=== PATIENT | female | born 1950 | race Caucasian/White ===

== ENCOUNTER 2016-10-31 17:16 | Emergency (ER) | payer OTHER ==
[~2016-10-31] VITALS: Ht 154.9 cm; Wt 65.7 kg
[~2016-10-31 17:16] MED LIST: AUGMENTIN875 MG PO; CIPRO500 MG PO; ENULOSE10 GM/15 M PO; FLAGYL500 MG PO; HYDROCODON-ACE1 EAC7 PO; MIRALAX17 GM PO; PERCOCET 5/31 TABLET PO; PRILOSEC20 MG PO; SIMVASTATIN20 MG PO; ZOFRAN4 MG PO
[2016-10-31 17:21] VITALS: BP 131/81
== END 2016-10-31 18:57 | disposition home or self-care (01) ==
LOC: EME 17:16
DX: S80.02XA Contusion of left knee, initial encounter (principal); W01.0XXA Fall on same level from slipping, tripping and stumbling without subsequent striking against object, initial encounter; Z88.6 Allergy status to analgesic agent
CPT/HCPCS: 73564; 99281; 99284

== ENCOUNTER 2017-02-11 09:31 | Day surgery (SDC) | payer OTHER ==
[~2017-02-11] VITALS: Ht 154.9 cm; Wt 68.8 kg
[2017-02-11] VITALS (7 sets, daily range): BP systolic 102–146; BP diastolic 55–78
[2017-02-11] MEDS ORDERED: HYDROCODON-ACE1 EA11 PO (13:39)
[2017-02-12 03:42] VITALS: BP 106/61
[2017-02-12 07:50] VITALS: BP 129/61
== END 2017-02-12 10:41 | disposition home or self-care (01) ==
LOC: SDC 09:31 → 2SOUTH 13:39 → ENRESERV 19:17 → 2EASTP 20:19
PROC: 0WUF0JZ Supplement Abdominal Wall with Synthetic Substitute, Open Approach (ICD-10-PCS; principal; 2017-02-11)
DX: K43.2 Incisional hernia without obstruction or gangrene (principal); R11.0 Nausea; I10 Essential (primary) hypertension; E78.5 Hyperlipidemia, unspecified; K57.30 Diverticulosis of large intestine without perforation or abscess without bleeding; Z80.0 Family history of malignant neoplasm of digestive organs; M81.0 Age-related osteoporosis without current pathological fracture; Z87.440 Personal history of urinary (tract) infections; Z88.5 Allergy status to narcotic agent; Z88.8 Allergy status to other drugs, medicaments and biological substances
CPT/HCPCS: C1781; G0378; J0330; J0690; J1100; J1170; J1885; J2405; J2710; J2765; J3010; J7120; Q0175; S0020